=== PATIENT | female | born 1940 | race Caucasian/White ===

== ENCOUNTER → 2016-03-26 | Day surgery (SDC) | payer OTHER ==
[~2016-03-26] MED LIST: ACET-1311 PO; ALPR0.25 PO; CALC500C3 PO; CYCL5TAB PO; DEXL60CA4 PO; DOCU-94 PO; ENOX30IN4 SC; GABA-112 PO; LIDOCAINE HCL 2% 2 ML VIAL (20MG/ML) ONE; MAGN400T6 PO; MECL-91 PO; MELATAB2 PO; MISO1TAB10 PO; OMEG10007 PO; ONDANSETRON INJ 2 MG/ML 2 ML VIAL IV PRN; OXYC1TAB3 PO; PARO10TA PO; POLY150C12 PO; PROPOFOL IV EMULSION 10 MG/ML 20 ML VIAL IV ONE; RANI150T3 PO; RIBO100C PO; SIMV20TA2 PO; SUCR1TAB29 PO; VITAMIN B12 PO
--- NOTE | 2016-03-26 12:29 | Endo History and Physical ---
History & Physical Date of Service: Mar 26, 2016. Chief Complaint: blood in stool/anemia Referring Physician: Dr. Brooks Ramos History of Present Illness patient referred for evaluation of Heme + stool and worsening anemia. She has a history of a chronic peptic ulcer (negative bx for malignancy on several occasions). Past Surgical History Hx Cardiac Surgery: No Hx Abdominal Surgery: Yes (APPY, MAYELIN, TUBAL LIGATION) Hx Cancer Surgery: No Hx Thoracic Surgery: No Hx Orthopedic: Yes (BACK SURGERY) Hx Urinary Tract Surgery: No Social History Smoking Status: Never Smoker Hx Substance Use: No Hx Alcohol Use: No Allergies Coded Allergies: No Known Allergies (Verified , NONE, 03/19/16) Current Medications Reported Home Medications Medications Dose Route/Sig Max Daily Dose Days Date Category Dose Instructions Carafate (Sucralfate) 1 Gm Tab 1 Gm PO BID 03/19/16 Reported Zocor (Simvastatin) 20 Mg Tab 20 Mg PO QPM 03/19/16 Reported Zantac (Ranitidine HCl) 150 Mg Tab 150 Mg PO HS 03/19/16 Reported Paxil (Paroxetine Hcl) 10 Mg Tab 10 Mg PO DAILY 03/19/16 Reported [place]-3 (Fish Oil) 1 Ea Cap 1 Cap PO DAILY 03/19/16 Reported Cytotec (Misoprostol) 100 Mcg Tab 100 Mcg PO DAILY 03/19/16 Reported Melatonin Maximum Strengt (Melatonin) 5 Mg Tab 1 Tab PO HS 30 03/19/16 Reported Meclizine 25 (Meclizine HCl) 25 Mg Tab 1 Tab PO TID PRN 03/19/16 Reported Mag-Ox (Magnesium Oxide) 400 Mg Tab 400 Mg PO DAILY 03/19/16 Reported Poly-Iron 150 (Polysaccharide Iron Complex) 150 Mg Cap 1 Cap PO DAILY 03/19/16 Reported Neurontin (Gabapentin) 100 Mg Cap 100 Mg PO QID 03/19/16 Reported Colace (Docusate Sodium) 100 Mg Cap 1 Cap PO BID 30 03/19/16 Reported Dexilant (Dexlansoprazole) 60 Mg Cap 1 Cap PO DAILY 03/19/16 Reported Flexeril (Cyclobenzaprine Hcl) 5 Mg Tab 0.5 Tab PO Q8H PRN 03/19/16 Reported PRN [Vitamin B12] 2 Tab PO DAILY 03/19/16 Reported Tums (Calcium Carbonate) 500 Mg Chew 1-2 Tab PO DIRECTED PRN 03/19/16 Reported Xanax (Alprazolam) 0.25 Mg Tab 0.25 Mg PO BID PRN 03/19/16 Reported Roxicodone Ir (Oxycodone HCl) 5 Mg Tab 1-2 Tab PO Q4H PRN 03/19/16 Reported Tylenol (Acetaminophen) 325 Mg Tab 650 Mg PO DAILY PRN 12/12/08 Reported Vital Signs Date Time Temp Pulse Resp B/P Pulse Ox O2 Delivery O2 Flow Rate FiO2 03/26/16 12:06 36.5 76 20 125/68 98 Room Air Physical Exam General Appearance: no apparent distress Respiratory/Chest: Auscultation: breath sounds normal Cardiovascular: Heart Auscultation: II/ ROS Abdomen: Inspection & Palpation: soft Assessment and Plan I suspect the anemia may be related to her chronic peptic ulcer--will plan on EGD / colnoscopy today. We have discussed the risks to include bleeding, infection, perforation, pain and missed polyps.
--- NOTE | 2016-03-26 13:04 | GI REPORT ---
Procedure Date: 03/26/2016 12:41 PM Procedure: Colonoscopy Indications: Heme positive stool Medicines: Monitored Anesthesia Care Complications: No immediate complications. Estimated blood loss: none Estimated Blood Loss: Estimated blood loss: none. Procedure: Pre-Anesthesia Assessment: - Prior to the procedure, a History and Physical was performed, and patient medications, allergies and sensitivities were reviewed. The patient's tolerance of previous anesthesia was reviewed. - The risks and benefits of the procedure and the sedation options and risks were discussed with the patient. All questions were answered and informed consent was obtained. - Patient identification and proposed procedure were verified prior to the procedure by the physician, the nurse and the lead medical technologist. The procedure was verified in the procedure room. - Pre-procedure physical examination revealed no contraindications to sedation. - ASA Grade Assessment: III - A patient with severe systemic disease. - After reviewing the risks and benefits, the patient was deemed in satisfactory condition to undergo the procedure. - The anesthesia plan was to use monitored anesthesia care (MAC). - Immediately prior to administration of medications, the patient was re-assessed for adequacy to receive sedatives. - The heart rate, respiratory rate, oxygen saturations, blood pressure, adequacy of pulmonary ventilation, and response to care were monitored throughout the procedure. - The physical status of the patient was re-assessed after the procedure. After I obtained informed consent, the scope was passed under direct vision. Throughout the procedure, the patient's blood pressure, pulse, and oxygen saturations were monitored continuously. The scope was introduced through the anus and advanced to the terminal ileum. The colonoscopy was performed without difficulty. The patient tolerated the procedure well. The quality of the bowel preparation was good. Findings: The perianal and digital rectal examinations were normal. Pertinent negatives include normal sphincter tone. The terminal ileum appeared normal. Many small-mouthed diverticula were found in the sigmoid colon and in the descending colon. Internal hemorrhoids were found during retroflexion. The hemorrhoids were mild. The exam was otherwise without abnormality. Impression: - The examined portion of the ileum was normal. - Mild diverticulosis in the sigmoid colon and in the descending colon. - Internal hemorrhoids. - The examination was otherwise normal. Recommendation: - Discharge patient to home (ambulatory). - Advance diet as tolerated today. - Repeat colonoscopy is not recommended for screening purposes. - Return to GI office PRN. Flor Nazario D.O. Flor Nazario, 03/26/2016 1:02:48 PM This report has been signed electronically. Note Initiated On: 03/26/2016 12:41 PM
--- NOTE | 2016-03-26 13:09 | GI REPORT ---
Procedure Date: 03/26/2016 12:27 PM Procedure: Upper GI endoscopy Indications: Iron deficiency anemia secondary to chronic blood loss Medicines: Monitored Anesthesia Care Complications: No immediate complications. Estimated blood loss: Minimal. Estimated Blood Loss: Estimated blood loss was minimal. Procedure: Pre-Anesthesia Assessment: - Prior to the procedure, a History and Physical was performed, and patient medications, allergies and sensitivities were reviewed. The patient's tolerance of previous anesthesia was reviewed. - The risks and benefits of the procedure and the sedation options and risks were discussed with the patient. All questions were answered and informed consent was obtained. - Patient identification and proposed procedure were verified prior to the procedure by the physician, the nurse and the lay out and detail drafter. The procedure was verified in the procedure room. - Pre-procedure physical examination revealed no contraindications to sedation. - ASA Grade Assessment: III - A patient with severe systemic disease. - After reviewing the risks and benefits, the patient was deemed in satisfactory condition to undergo the procedure. - The anesthesia plan was to use monitored anesthesia care (MAC). - Immediately prior to administration of medications, the patient was re-assessed for adequacy to receive sedatives. - The heart rate, respiratory rate, oxygen saturations, blood pressure, adequacy of pulmonary ventilation, and response to care were monitored throughout the procedure. - The physical status of the patient was re-assessed after the procedure. After obtaining informed consent, the endoscope was passed under direct vision. Throughout the procedure, the patient's blood pressure, pulse, and oxygen saturations were monitored continuously. The scope was introduced through the mouth, and advanced to the second part of duodenum. The upper GI endoscopy was accomplished without difficulty. The patient tolerated the procedure well. Findings: Esophagitis with no bleeding was found in the upper third of the esophagus. Cells for cytology were obtained by brushing. Estimated blood loss: none. A medium-sized hiatus hernia was found. The proximal extent of the gastric folds (end of tubular esophagus) was 34 cm from the incisors. The hiatal narrowing was 38 cm from the incisors. The Z-line was 33 cm from the incisors. A medium amount of food (residue) was found in the gastric body. One non-obstructing non-bleeding cratered gastric ulcer with no stigmata of bleeding was found on the anterior wall of the gastric antrum. The lesion was 15 mm in largest dimension. Biopsies were taken with a cold forceps for histology. Estimated blood loss was minimal. The examined duodenum was normal. Impression: - Suspect Candidiasis of the esophagus. Cells for cytology obtained. - Medium-sized hiatus hernia. - A medium amount of food (residue) in the stomach. - Chronic non-obstructing non-bleeding gastric ulcer. This likely represents the source of anemia and Heme + stool. This is a chronic finding. Biopsied. - Normal examined duodenum. Recommendation: - Perform a colonoscopy today. - Await pathology results. - Continue present medications (Dexilant, Ranitidine and carafate). Flor Nazario D.O. Flor Nazario DO 03/26/2016 1:07:53 PM This report has been signed electronically. Note Initiated On: 03/26/2016 12:27 PM
--- NOTE | 2016-03-26 13:11 | Discharge Instructions ---
Endoscopy Patient Instructions Date / Procedure(s) Performed Mar 26, 2016. Colonoscopy Allergy Information Coded Allergies: No Known Allergies (Verified , NONE, 03/19/16) Discharge Date / Findings Mar 26, 2016. Large chronic gastric ulcer Diverticulosis of the colon Internal hemorrhoids Medication Instructions Stopped Medication(s): Patient's paperwork says she had all of her routine morning meds. Reported Home Medications Medications Dose Route/Sig Max Daily Dose Days Date Category Dose Instructions Carafate (Sucralfate) 1 Gm Tab 1 Gm PO BID 03/19/16 Reported Zocor (Simvastatin) 20 Mg Tab 20 Mg PO QPM 03/19/16 Reported Zantac (Ranitidine HCl) 150 Mg Tab 150 Mg PO HS 03/19/16 Reported Paxil (Paroxetine Hcl) 10 Mg Tab 10 Mg PO DAILY 03/19/16 Reported [place]-3 (Fish Oil) 1 Ea Cap 1 Cap PO DAILY 03/19/16 Reported Cytotec (Misoprostol) 100 Mcg Tab 100 Mcg PO DAILY 03/19/16 Reported Melatonin Maximum Strengt (Melatonin) 5 Mg Tab 1 Tab PO HS 30 03/19/16 Reported Meclizine 25 (Meclizine HCl) 25 Mg Tab 1 Tab PO TID PRN 03/19/16 Reported Mag-Ox (Magnesium Oxide) 400 Mg Tab 400 Mg PO DAILY 03/19/16 Reported Poly-Iron 150 (Polysaccharide Iron Complex) 150 Mg Cap 1 Cap PO DAILY 03/19/16 Reported Neurontin (Gabapentin) 100 Mg Cap 100 Mg PO QID 03/19/16 Reported Colace (Docusate Sodium) 100 Mg Cap 1 Cap PO BID 30 03/19/16 Reported Dexilant (Dexlansoprazole) 60 Mg Cap 1 Cap PO DAILY 03/19/16 Reported Flexeril (Cyclobenzaprine Hcl) 5 Mg Tab 0.5 Tab PO Q8H PRN 03/19/16 Reported PRN [Vitamin B12] 2 Tab PO DAILY 03/19/16 Reported Tums (Calcium Carbonate) 500 Mg Chew 1-2 Tab PO DIRECTED PRN 03/19/16 Reported Xanax (Alprazolam) 0.25 Mg Tab 0.25 Mg PO BID PRN 03/19/16 Reported Roxicodone Ir (Oxycodone HCl) 5 Mg Tab 1-2 Tab PO Q4H PRN 03/19/16 Reported Tylenol (Acetaminophen) 325 Mg Tab 650 Mg PO DAILY PRN 12/12/08 Reported Provider Instructions Activity Restrictions - No exercising or heavy lifting for 24 hours. - Do not drink alcohol the day of the procedure. - Do not drive a car or operate machinery until the day after the procedure. - Do not make any important decisions or sign important papers in 24 hours after the procedure. Following Day: - Return to full activity which may include returning to work/school. Diet Start your diet with liquids and light foods (jello, soup, juice, toast). Then eat your usual diet if not nauseated. Treatment For Common After Affects For mild abdominal pain, bloating, or excessive gas: - Rest - Eat lightly - Lie on right side Follow-Up Information Follow-up with Dr. Brooks Ramos as scheduled Await pathology results No repeat colonoscopy needed Anesthesia Information What You Should Know You have had a procedure that required some medicine to reduce anxiety and discomfort. This treatment is called moderate sedation. After receiving the treatment, you may be sleepy, but you will be able to breathe on your own. The effects of the treatment may last for several hours. Follow these instructions along with Activity/Diet recommendations noted above: * Do NOT do anything where dizziness or clumsiness would be dangerous. * Rest quietly at home today, then you can be up and about tomorrow. * Have a responsible person stay with you the rest of today. * You may have had an I.V. today. If so, you may take the dressing off later today. Recommendations Call your doctor if: * Trouble breathing * Continuous vomiting for more than 24 hours * Temperature above 101 degrees * Severe abdominal pain or bloating * Pain not relieved by pain medicine ordered * There is increased drainage or redness from any incision * A large amount of rectal bleeding greater than 2-3 tablespoons. (If you had a polyp/s removed or have hemorrhoids, a small amount of blood - from the rectum is to be expected.) * You have any unanswered questions or concerns. IN THE EVENT OF A SERIOUS EMERGENCY, GO TO THE NEAREST EMERGENCY ROOM Your discharge instructions were prepared by provider Flor Nazario. Patient Instructions Signature Page Dora Dale Patient (or Guardian) Signature/Date: I have read and understand the instructions given to me by my caregivers. Caregiver/RN/Doctor Signature/Date: The above-named patient and/or guardian has received patient instructions on this date. + Original Patient Signature Page (only) stays with chart. Please make copy for patient.
[2016-03-26 13:37] VITALS: BP 153/82; PULSE 62; O2SAT 100
--- NOTE | 2016-03-26 13:39 | Anesthesiology Progress Note ---
Anesthesia Post Op Note Date & Time Mar 26, 2016 at 13:39 Vital Signs Pain Intensity: 0 Vital Signs Past 12 Hours Date Time Temp Pulse Resp B/P Pulse Ox O2 Delivery O2 Flow Rate FiO2 03/26/16 13:37 62 20 153/82 100 Room Air 03/26/16 13:22 64 20 151/83 95 Room Air 03/26/16 13:07 72 20 142/74 97 Room Air 03/26/16 12:06 36.5 76 20 125/68 98 Room Air Notes Mental Status: alert / awake / arousable, participated in evaluation Pt Amnestic to Procedure: Yes Nausea / Vomiting: adequately controlled Pain: adequately controlled Airway Patency, RR, SpO2: stable & adequate BP & HR: stable & adequate Hydration State: stable & adequate Anesthetic Complications: no major complications apparent
== END | disposition home or self-care (01) ==
LOC: C.GI 11:27
PROVIDERS: ATTEND Internal Medicine Gastroenterology
DX: K25.7 Chronic gastric ulcer without hemorrhage or perforation (principal); R19.5 Other fecal abnormalities; D50.0 Iron deficiency anemia secondary to blood loss (chronic); K57.30 Diverticulosis of large intestine without perforation or abscess without bleeding; K64.8 Other hemorrhoids; Z87.11 Personal history of peptic ulcer disease; K44.9 Diaphragmatic hernia without obstruction or gangrene

== ENCOUNTER → 2016-12-24 | Day surgery (SDC) | payer OTHER ==
[~2016-12-24] VITALS: Ht 157.5 cm; Wt 49.5 kg
[~2016-12-24] MED LIST changes: -ACET-1311 PO; -ALPR0.25 PO; +ATROPINE SULFATE 0.1 MG/ML 5ML SYR IV PRN; -CYCL5TAB PO; -DOCU-94 PO; -ENOX30IN4 SC; +EpHEDrine SULFATE INJ 50 MG/ML AMP IV PRN; -GABA-112 PO; +IRON1CAP2 PO; +MELA1TAB3 PO; -MELATAB2 PO; +MISO100T PO; -MISO1TAB10 PO; +ONDANSETRON INJ 2 MG/ML 2 ML VIAL ONE; -OXYC1TAB3 PO; -PARO10TA PO; -POLY150C12 PO; -RIBO100C PO; +RIBO1TAB PO; -SUCR1TAB29 PO
[2016-12-24 11:41] VITALS: Ht 157.5 cm; Wt 49.5 kg
--- NOTE | 2016-12-24 12:41 | Endo History and Physical ---
History & Physical Date of Service: Dec 24, 2016. Chief Complaint: IRON DEFIENCT ANEMIA D/T CHRONIC BLOOD LOSS Referring Physician: DR. NETTA FOY History of Present Illness Patient with a history of iron deficiency anemia for repeat upper endoscopy today. She does note having frequent chest burning and has been losing weight recently. Her past history is notable for a chronic gastric ulcer which is been followed for several years. She denies taking any nonsteroidals or herbal supplements at this time. Past Surgical History Hx Cardiac Surgery: No Hx Internal Defibrillator: No Hx Pacemaker: Yes Hx Abdominal Surgery: Yes (APPY, MAYELIN, TUBAL LIGATION, HIATAL HERNIA REPAIR) Hx of Implantable Prosthesis: No Hx Post-Op Nausea and Vomiting: No Hx Cancer Surgery: No Hx Thoracic Surgery: No Hx Orthopedic: Yes (LUMBAR DISCECTOMY) Hx Urinary Tract Surgery: No Family History None Social History Smoking Status: Never Smoker Hx Substance Use: No Hx Alcohol Use: No Allergies Coded Allergies: No Known Allergies (Verified , NONE, 12/24/16) Current Medications Reported Home Medications Medications Dose Route/Sig Max Daily Dose Days Date Category Zocor (Simvastatin) 20 Mg Tab 20 Mg PO QPM 12/17/16 Reported B-2 (Riboflavin) 100 Mg Tab 1 Tab PO QAM 12/17/16 Reported Zantac (Ranitidine HCl) 150 Mg Tab 150 Mg PO BID 12/17/16 Reported [place]-3 (Fish Oil) 1 Ea Cap 1 Cap PO DAILY 12/17/16 Reported Cytotec (Misoprostol) 100 Mcg Tab 100 Mcg PO DAILY 12/17/16 Reported Melatonin (Melatonin-Pyridoxine) 1 Tab Tab 20 Mg PO HS PRN 12/17/16 Reported Meclizine 25 (Meclizine HCl) 25 Mg Tab 1 Tab PO TID PRN 12/17/16 Reported Mag-Ox (Magnesium Oxide) 400 Mg Tab 400 Mg PO DAILY 12/17/16 Reported Iron Complex (Iron Combinations) 1 Cap Cap 1 Cap PO DAILY 12/17/16 Reported Dexilant (Dexlansoprazole) 60 Mg Cap 1 Cap PO DAILY 12/17/16 Reported [Vitamin B12] 250 Mg PO BID 12/17/16 Reported Tums (Calcium Carbonate) 500 Mg Chew 1 Tab PO QID PRN 12/17/16 Reported Vital Signs Weight (Kilograms): 49.55 Height (Feet): 5 Height (Inches): 2 Date Time Temp Pulse Resp B/P (MAP) Pulse Ox O2 Delivery O2 Flow Rate FiO2 12/24/16 11:49 36.7 98 20 150/78 (102) 98 Room Air Physical Exam General Appearance: no apparent distress Respiratory/Chest: Auscultation: deminished air movement Cardiovascular: Heart Auscultation: II/ ROS Abdomen: Inspection & Palpation: soft (lot having Dragon speak care) Assessment and Plan Patient presents for upper endoscopy today to evaluate her recent history of weight loss and persistent anemia. We have discussed the risks of the procedure to include bleeding, infection, perforation and need for follow-up studies.
--- NOTE | 2016-12-24 13:29 | Discharge Instructions ---
Endoscopy Patient Instructions Date / Procedure(s) Performed Dec 24, 2016. EGD Allergy Information Coded Allergies: No Known Allergies (Verified , NONE, 12/24/16) Discharge Date / Findings Dec 24, 2016. Large hiatal hernia Large antral ulcer Medication Instructions Stopped Medication(s): HASN'T TAKEN TOO SICK Reported Home Medications Medications Dose Route/Sig Max Daily Dose Days Date Category Zocor (Simvastatin) 20 Mg Tab 20 Mg PO QPM 12/17/16 Reported B-2 (Riboflavin) 100 Mg Tab 1 Tab PO QAM 12/17/16 Reported Zantac (Ranitidine HCl) 150 Mg Tab 150 Mg PO BID 12/17/16 Reported [place]-3 (Fish Oil) 1 Ea Cap 1 Cap PO DAILY 12/17/16 Reported Cytotec (Misoprostol) 100 Mcg Tab 100 Mcg PO DAILY 12/17/16 Reported Melatonin (Melatonin-Pyridoxine) 1 Tab Tab 20 Mg PO HS PRN 12/17/16 Reported Meclizine 25 (Meclizine HCl) 25 Mg Tab 1 Tab PO TID PRN 12/17/16 Reported Mag-Ox (Magnesium Oxide) 400 Mg Tab 400 Mg PO DAILY 12/17/16 Reported Iron Complex (Iron Combinations) 1 Cap Cap 1 Cap PO DAILY 12/17/16 Reported Dexilant (Dexlansoprazole) 60 Mg Cap 1 Cap PO DAILY 12/17/16 Reported [Vitamin B12] 250 Mg PO BID 12/17/16 Reported Tums (Calcium Carbonate) 500 Mg Chew 1 Tab PO QID PRN 12/17/16 Reported Provider Instructions Activity Restrictions - No exercising or heavy lifting for 24 hours. - Do not drink alcohol the day of the procedure. - Do not drive a car or operate machinery until the day after the procedure. - Do not make any important decisions or sign important papers in 24 hours after the procedure. Following Day: - Return to full activity which may include returning to work/school. Diet Start your diet with liquids and light foods (jello, soup, juice, toast). Then eat your usual diet if not nauseated. Treatment For Common After Affects For mild abdominal pain, bloating, or excessive gas: - Rest - Eat lightly - Lie on right side Follow-Up Information Upper GI series Referral to surgical oncology given chronic nonhealing ulcer Anesthesia Information What You Should Know You have had a procedure that required some medicine to reduce anxiety and discomfort. This treatment is called moderate sedation. After receiving the treatment, you may be sleepy, but you will be able to breathe on your own. The effects of the treatment may last for several hours. Follow these instructions along with Activity/Diet recommendations noted above: * Do NOT do anything where dizziness or clumsiness would be dangerous. * Rest quietly at home today, then you can be up and about tomorrow. * Have a responsible person stay with you the rest of today. * You may have had an I.V. today. If so, you may take the dressing off later today. Recommendations Call your doctor if: * Trouble breathing * Continuous vomiting for more than 24 hours * Temperature above 101 degrees * Severe abdominal pain or bloating * Pain not relieved by pain medicine ordered * There is increased drainage or redness from any incision * A large amount of rectal bleeding greater than 2-3 tablespoons. (If you had a polyp/s removed or have hemorrhoids, a small amount of blood - from the rectum is to be expected.) * You have any unanswered questions or concerns. IN THE EVENT OF A SERIOUS EMERGENCY, GO TO THE NEAREST EMERGENCY ROOM Your discharge instructions were prepared by provider Allen Mariee. Patient Instructions Signature Page Dora Dale Patient (or Guardian) Signature/Date: I have read and understand the instructions given to me by my caregivers. Caregiver/RN/Doctor Signature/Date: The above-named patient and/or guardian has received patient instructions on this date. + Original Patient Signature Page (only) stays with chart. Please make copy for patient.
--- NOTE | 2016-12-24 13:31 | Anesthesiology Progress Note ---
Anesthesia Post Op Note Date & Time Dec 24, 2016 at 13:31 Vital Signs Pain Intensity: 6 Vital Signs Past 12 Hours Date Time Temp Pulse Resp B/P (MAP) Pulse Ox O2 Delivery O2 Flow Rate FiO2 12/24/16 11:49 36.7 98 20 150/78 (102) 98 Room Air Notes Mental Status: alert / awake / arousable, participated in evaluation Pt Amnestic to Procedure: Yes Nausea / Vomiting: adequately controlled Pain: adequately controlled Airway Patency, RR, SpO2: stable & adequate BP & HR: stable & adequate Hydration State: stable & adequate Anesthetic Complications: no major complications apparent
[2016-12-24 13:55] VITALS: BP 160/99; PULSE 81; O2SAT 98
--- NOTE | 2016-12-24 20:25 | GI REPORT ---
Procedure Date: 12/24/2016 12:53 PM Procedure: Upper GI endoscopy Indications: Follow-up of chronic gastric ulcer Medicines: Monitored Anesthesia Care Complications: No immediate complications. Estimated Blood Loss: Estimated blood loss: none. Procedure: Pre-Anesthesia Assessment: - Prior to the procedure, a History and Physical was performed, and patient medications and allergies were reviewed. The patient is competent. The risks and benefits of the procedure and the sedation options and risks were discussed with the patient. All questions were answered and informed consent was obtained. Patient identification and proposed procedure were verified by the physician, the nurse and the supervisor of communications in the procedure room. Mental Status Examination: alert and oriented. Airway Examination: normal oropharyngeal airway and neck mobility. Respiratory Examination: clear to auscultation. CV Examination: normal. ASA Grade Assessment: III - A patient with severe systemic disease. After reviewing the risks and benefits, the patient was deemed in satisfactory condition to undergo the procedure. The anesthesia plan was to use monitored anesthesia care (MAC). Immediately prior to administration of medications, the patient was re-assessed for adequacy to receive sedatives. The heart rate, respiratory rate, oxygen saturations, blood pressure, adequacy of pulmonary ventilation, and response to care were monitored throughout the procedure. The physical status of the patient was re-assessed after the procedure. After obtaining informed consent, the endoscope was passed under direct vision. Throughout the procedure, the patient's blood pressure, pulse, and oxygen saturations were monitored continuously. The scope was introduced through the mouth, and advanced to the pylorus. The upper GI endoscopy was accomplished without difficulty. The patient tolerated the procedure well. Findings: The examined esophagus was normal. A large hiatus hernia was found. The hiatal narrowing was 37 cm from the incisors. The Z-line was 30 cm from the incisors. A medium amount of food (residue) was found in the gastric body and in the hernia sac. One non-bleeding cratered nonhealing gastric ulcer with no stigmata of bleeding was found in the anterior wall of the gastric antrum. The lesion was 15 mm in largest dimension. Biopsies were taken with a cold forceps for histology from ulcer edges. Verification of patient identification for the specimen was done by the physician and nurse using the patient's name and date. Cells for cytology were obtained by brushing from the ulcer bed. 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 This was non-traversed with the scope. An examination of the duodenum could not be performed. Impression: - Normal esophagus. - Large hiatus hernia. - A medium amount of food (residue) in the stomach. - Nonhealing, Non-bleeding gastric ulcer with no stigmata of bleeding. Biopsied. Cells for cytology obtained. - Gastric stenosis was found at the pylorus. Recommendation: - Discharge patient to home (ambulatory). - Upper GI series - Referral Surgical Oncology (nonhealing gastric ulcer) - Await pathology results. Flor Nazario D.O. Flor Nazario DO 12/24/2016 1:32:06 PM This report has been signed electronically. Darlyn Ayon M.d. Note Initiated On: 12/24/2016 12:53 PM I attest to the content of the Intraoperative Record and orders documented therein, exceptions below
== END | disposition home or self-care (01) ==
LOC: C.GI 11:19
PROVIDERS: ATTEND Internal Medicine Gastroenterology
DX: K25.7 Chronic gastric ulcer without hemorrhage or perforation (principal); K44.9 Diaphragmatic hernia without obstruction or gangrene; K31.1 Adult hypertrophic pyloric stenosis; D50.0 Iron deficiency anemia secondary to blood loss (chronic); Z79.899 Other long term (current) drug therapy

== ENCOUNTER → 2017-01-19 | Outpatient (CLI) | payer OTHER ==
[~2017-01-19] MED LIST changes: -ATROPINE SULFATE 0.1 MG/ML 5ML SYR IV PRN; -EpHEDrine SULFATE INJ 50 MG/ML AMP IV PRN; -LIDOCAINE HCL 2% 2 ML VIAL (20MG/ML) ONE; -ONDANSETRON INJ 2 MG/ML 2 ML VIAL IV PRN; -ONDANSETRON INJ 2 MG/ML 2 ML VIAL ONE; -PROPOFOL IV EMULSION 10 MG/ML 20 ML VIAL IV ONE
--- NOTE | 2017-01-19 10:16 | DIAGNOSTIC IMAGING REPORT ---
GI SERIES W/AIR ROUTINE CLINICAL HISTORY: CHRONIC GASTRIC ULCER COMPARISON STUDY: None. FLUOROSCOPY TIME: 2.6 minutes. 25 images submitted. FINDINGS: The esophagus normal in course and caliber. Small hiatus hernia. Deformity at the gastric fundus may be due to prior postoperative change. No gastric ulcerations. The duodenal bulb and duodenal C sweep are within normal limits. No gastroesophageal reflux. Pacemaker wires are noted. IMPRESSION: 1. Small hiatus hernia. 2. No gastroesophageal reflux. 3. Deformity of the proximal stomach may be due to prior postoperative change. Electronically signed by: Ean Campo M.D. 01/19/2017 10:14 AM Dictated Date/Time: 01/19/2017 10:11 AM
== END | disposition home or self-care (01) ==
LOC: C.RAD 09:29
PROVIDERS: ATTEND Internal Medicine Gastroenterology
DX: K25.7 Chronic gastric ulcer without hemorrhage or perforation (principal)